=== PATIENT | male | born 1960 | race Asian ===

== ENCOUNTER 2018-01-14 11:21 | Emergency (ER) | payer MEDICAID ==
[~2018-01-14] VITALS: Ht 162.6 cm; Wt 54.5 kg
[2018-01-14] MEDS ORDERED: LORazepam 2 MG TABLET PO PRN ×2 (13:00→14:15)
[2018-01-14] MEDS ORDERED: ZOLPIDEM TARTRATE 10 MG TABLET PO PRN ×2 (13:00→14:15)
[2018-01-14] MEDS ORDERED: HALOPERIDOL 5 MG TABLET PO PRN ×2 (13:00→14:15)
[2018-01-14 16:48] LABS: GLUCOSE,POINT OF CARE 152 MG/DL (70-110)
[2018-01-14] MEDS ORDERED: HALOPERIDOL LACTATE 5 MG/ML VIAL IM ONE (21:00)
[2018-01-14] MEDS ORDERED: LORazepam 2 MG/ML VIAL IM ONE (21:00)
[2018-01-14] MEDS ORDERED: DiphenhydrAMINE HCL 50 MG/ML VIAL IM ONE (21:00)
[2018-01-14 21:04] VITALS: BP 121/81
== END 2018-01-14 21:36 | disposition home or self-care (01) ==
LOC: EMS 11:22 → EEVIPCON 11:22 → EMS 21:36
DX: F29 Unspecified psychosis not due to a substance or known physiological condition (principal); F22 Delusional disorders; E11.9 Type 2 diabetes mellitus without complications
CPT/HCPCS: 82962; 96372; 99285; J1200; J1630; J2060